=== PATIENT | male | born 1955 | race Caucasian/White ===

== ENCOUNTER 2021-01-22 12:19 | Outpatient (CLI) | payer BC | END 2021-01-22 12:20 | disposition home or self-care (01) | LOC: TBSIIMAG 12:19 | PROVIDERS: ATTEND Neurological Surgery | DX: M47.812 Spondylosis without myelopathy or radiculopathy, cervical region (principal); M54.2 Cervicalgia | CPT/HCPCS: 72141 ==

== ENCOUNTER 2021-02-16 09:11 | Outpatient (CLI) | payer BC ==
[2021-02-16 11:50] LABS: Hemoglobin 13.9 g/dL (13.5-17.5); Mean Corpuscular HGB CONC 33.3 g/dL (32.0-36.0); Mean Corpuscular Hemoglobin 33.3 pg (27.0-33.0); Mean Platelet Volume 11.3 fl (7.4-10.4); Platelet Count 241 10x3/uL (150-450); RBC Distribution Width 13.3 % (11.5-14.5); Red Blood Cell (RBC) Count 4.17 10x6/uL (4.32-5.72); White Blood Cell (WBC) Count 5.2 10x3/uL (3.5-10.5)
[2021-02-16 12:11] LABS: Anion Gap 18 mmol/L (10-20); BUN (Urea Nitrogen) 16 mg/dL (8.4-25.7); Calc. Creatinine Clearance 0 mL/min (70-130); Calcium 8.9 mg/dL (7.8-10.44); Carbon Dioxide 22 mmol/L (23-31); Chloride 105 mmol/L (98-107); Glucose 94 mg/dL (80-115); Potassium 4.7 mmol/L (3.5-5.1); Sodium 140 mmol/L (136-145)
[2021-02-16 17:57] LABS: SARS-CoV-2 PCR by NAA Not Detected (NotDetected)
== END 2021-02-16 09:12 | disposition home or self-care (01) ==
LOC: LABBT 09:11
PROVIDERS: ATTEND Neurological Surgery
DX: Z01.818 Encounter for other preprocedural examination (principal); Z20.822 Contact with and (suspected) exposure to COVID-19; M54.12 Radiculopathy, cervical region
CPT/HCPCS: 80048; 85027; 87635; 93005; 93010; U0003; U0005

== ENCOUNTER 2021-02-21 05:33 | Observation (INO) | payer BC ==
[2021-02-20 11:15] VITALS: BMI 27.8
[2021-02-21] MEDS ORDERED: Fentanyl 100 MCG/2 ML VIAL ONE ×3 (06:22→10:13)
[2021-02-21] MEDS ORDERED: Levofloxacin 500 mg/D5W 100 ml Premix Bag ONE (06:28)
[2021-02-21] MEDS ORDERED: Clindamycin/D5W 900 mg/50 ml Premix Bag ONE (06:28)
[2021-02-21] MEDS ORDERED: HYDROmorphone 0.5 MG/0.5 ML SYRINGE ONE ×3 (06:36→10:12)
[2021-02-21] MEDS ORDERED: Rocuronium Bromide 10 MG/ML (10ML VIAL) ONE ×2 (07:30)
[2021-02-21] MEDS ORDERED: PROPOFOL 200 MG/20 ML VIAL ONE (07:30)
[2021-02-21] MEDS ORDERED: Ondansetron PF 4 MG/2 ML Vial ONE (07:30)
[2021-02-21] MEDS ORDERED: Lidocaine 1% PF 5 ML VIAL ONE (07:30)
[2021-02-21] MEDS ORDERED: Glycopyrrolate 0.2 MG/ML 5 ML SYRINGE ONE (07:30)
[2021-02-21] MEDS ORDERED: Dexamethasone 20 MG/5 ML VIAL ONE (07:30)
[2021-02-21] MEDS ORDERED: SUGAMMADEX SODIUM 200 MG/2 ML VIAL ONE (08:07)
[2021-02-21] MEDS ORDERED: Ondansetron HCl/PF 4 MG/2 ML Vial IVP PRN (08:30)
[2021-02-21] MEDS ORDERED: Promethazine HCl 25 MG/ML VIAL SLOW IVP PRN (08:30)
[2021-02-21] MEDS ORDERED: Promethazine HCl 25 MG/ML VIAL IM PRN ×2 (08:30→11:30)
[2021-02-21] MEDS ORDERED: HYDROmorphone 2 MG/ML VIAL SLOW IVP PRN (08:30)
[2021-02-21] MEDS ORDERED: Tamsulosin HCl 0.4 MG CAP ONE (08:53)
[2021-02-21] MEDS ORDERED: tiZANidine HCl 4 MG TAB ONE (09:28)
[2021-02-21] MEDS ORDERED: Ketorolac Tromethamine 30 MG/ML VIAL ONE (09:28)
[2021-02-21] MEDS ORDERED: Promethazine 25 MG TAB PO PRN (11:30)
[2021-02-21] MEDS ORDERED: Milk Of Magnesia 30 ML UDCUP PO PRN (11:30)
[2021-02-21] MEDS ORDERED: Mag-Al 1200 mg/1200 mg/30 ML UDCUP PO PRN (11:30)
[2021-02-21] MEDS ORDERED: diphenhydrAMINE 25 MG CAP PO PRN (11:30)
[2021-02-21] MEDS ORDERED: Promethazine HCl 12.5 MG SUPP PR PRN (11:30)
[2021-02-21] MEDS ORDERED: diphenhydrAMINE 50 MG/ML VIAL IVP PRN (11:30)
[2021-02-21] MEDS ORDERED: traMADol HCl 50 MG TAB PO PRN ×2 (11:30)
[2021-02-21] MEDS ORDERED: Morphine 4 MG/ML VIAL SLOW IVP PRN (11:30)
[2021-02-21] MEDS ORDERED: Acetaminophen/Codeine 30-300mg Tablet PO PRN (11:30)
[2021-02-21] MEDS ORDERED: Morphine 2 MG/ML VIAL SLOW IVP PRN (11:30)
[2021-02-21] MEDS ORDERED: Ondansetron PF 4 MG/2 ML Vial IVP PRN (11:32)
[2021-02-21] MEDS: Clindamycin/D5W 900 MG in Premix Bag 1 BAG IVPB SCH ×2 (13:32→21:41)
[2021-02-21] MEDS: Sodium Chloride 0.9% 1,000 ML IV SCH (13:34)
[2021-02-21] MEDS: Acetaminophen/Codeine 30-300mg Tablet PO PRN ×3 (13:41→21:41)
[2021-02-21] MEDS: tiZANidine HCl 4 MG TAB PO PRN (21:41)
[2021-02-22] MEDS: Sodium Chloride 0.9% 1,000 ML IV SCH (03:15)
[2021-02-22] MEDS: Clindamycin/D5W 900 MG in Premix Bag 1 BAG IVPB SCH (05:19)
[2021-02-22] MEDS: Acetaminophen/Codeine 30-300mg Tablet PO PRN ×2 (05:19→11:30)
[2021-02-22] MEDS: tiZANidine HCl 4 MG TAB PO PRN (05:20)
[2021-02-22] MEDS ORDERED: Tamsulosin HCl 0.4 MG CAP PO SCH (06:00)
[2021-02-22 07:59] VITALS: BP 129/76; TEMP 97.6
== END 2021-02-22 11:44 | disposition home or self-care (01) ==
LOC: SDC 05:33 → SURG A 09:11
PROVIDERS: ADMIT Neurological Surgery; ATTEND Neurological Surgery
PROC: 0RG20A0 Fusion of 2 or more Cervical Vertebral Joints with Interbody Fusion Device, Anterior Approach, Anterior Column, Open Approach (ICD-10-PCS; principal; 2021-02-21)
PROC: 0RT30ZZ Resection of Cervical Vertebral Disc, Open Approach (ICD-10-PCS; 2021-02-21)
DX: M50.121 Cervical disc disorder at C4-C5 level with radiculopathy (principal); M47.812 Spondylosis without myelopathy or radiculopathy, cervical region; Z88.0 Allergy status to penicillin
CPT/HCPCS: 76000; 96365; 96366; C1713; C1768; C1776; G0378; J1100; J1170; J1885; J1956; J2405; J2704; J3010; J3490

== ENCOUNTER 2021-03-07 09:32 | Outpatient (CLI) | payer BC | END 2021-03-07 09:33 | disposition home or self-care (01) | LOC: TBSIIMAG 09:32 | PROVIDERS: ATTEND Neurological Surgery | DX: M54.12 Radiculopathy, cervical region (principal); Z98.890 Other specified postprocedural states | CPT/HCPCS: 72040 ==

== ENCOUNTER 2021-04-13 08:36 | Outpatient (CLI) | payer BC | END 2021-04-13 08:37 | disposition home or self-care (01) | LOC: BICRAD 08:36 | PROVIDERS: ATTEND Neurological Surgery | DX: M47.22 Other spondylosis with radiculopathy, cervical region (principal); Z98.890 Other specified postprocedural states | CPT/HCPCS: 72040 ==